=== PATIENT | female | born 1945 | race Asian ===

== ENCOUNTER 2016-10-06 06:14 | Day surgery (SDC) | payer OTHER ==
[~2016-10-06] VITALS: Ht 154.9 cm; Wt 41.5 kg
[~2016-10-06 06:14] MED LIST: ALBU8.5H IH; ALEN35TA32 PO; ALPR0.255 PO; AMLO-512 PO; ATEN50TA PO; BUDE0.255 NEB; CALC-51 PO; CLON1 PO; DOCU250C91 PO; ESOM20CA31 PO; FAMO20 PO; FLUT16H NASAL; HYDR10 PO; IPRA3AMP4 IH; LACT1TAB11 PO; LEVO75TA4 PO; METO5TAB95 PO; MONT10TA21 PO; MULT-1192 PO; TOLT2CAP27 PO; ZOLP5 PO
[2016-10-06] MEDS ORDERED: SODIUM CHLORIDE 0.9% 1,000 ML IV ONE ×2 (06:25→06:30)
[2016-10-06] MEDS ORDERED: SIMV-260 PO (06:58)
[2016-10-06] MEDS ORDERED: CHOL200012 PO (06:58)
[2016-10-06] MEDS ORDERED: LEVO500 PO (06:58)
[2016-10-06] MEDS ORDERED: TERB2.5T2 PO (06:58)
[2016-10-06] MEDS ORDERED: FentaNYL CITRATE-PF 100 MCG/2 ML VIAL ONE (08:06)
[2016-10-06] MEDS ORDERED: MIDAZOLAM HCL 2 MG/2 ML VIAL ONE (08:06)
[2016-10-06] MEDS ORDERED: MethylPREDNISolone SOD SUCC 125 MG/2 ML VIAL ONE (08:58)
[2016-10-06] MEDS ORDERED: ALBUTEROL SULFATE 2.5 MG/0.5 ML NEB SOLUTION NEB ONE (12:00)
[2016-10-06] MEDS ORDERED: LIDOCAINE HCL 2% 30 ML JELLY TP ONE (12:00)
[2016-10-06] MEDS ORDERED: LIDOCAINE HCL 4% 50 ML SOLUTION TP ONE (12:00)
[2016-10-06] MEDS ORDERED: BENZOCAINE 20% 50 MCG/SPRAY 57 GM TP ONE (12:00)
[2016-10-06] MEDS ORDERED: OXYGEN THERAPY IH SCH (20:00)
== END 2016-10-06 10:20 | disposition home or self-care (01) ==
LOC: SURGERY 06:14
PROVIDERS: ATTEND Internal Medicine Critical Care Medicine
DX: J38.4 Edema of larynx (principal); B37.0 Candidal stomatitis; E78.00 Pure hypercholesterolemia, unspecified; E04.9 Nontoxic goiter, unspecified; M54.9 Dorsalgia, unspecified; Z88.8 Allergy status to other drugs, medicaments and biological substances; Z86.73 Personal history of transient ischemic attack (TIA), and cerebral infarction without residual deficits
CPT/HCPCS: 31623; 31624; 71010; 87015 ×2; 87070; 87077; 87101; 87186; 87205; 87220; J2250; J2930; J3010; J7030; 88108; 88312

== ENCOUNTER 2017-04-11 05:49 | Day surgery (SDC) | payer OTHER ==
[~2017-04-11] VITALS: Ht 154.9 cm; Wt 47.7 kg
[~2017-04-11 05:49] MED LIST changes: -ALBU8.5H IH; +ALBU8.5H8 IH; -ALEN35TA32 PO; -ALPR0.255 PO; -ATEN50TA PO; +CALC-1038 PO; -CALC-51 PO; +CHOL200012 PO; -DOCU250C91 PO; -FAMO20 PO; -HYDR10 PO; +LEVO500 PO; -METO5TAB95 PO; -MONT10TA21 PO; +SIMV-260 PO; +TERB2.5T2 PO; -TOLT2CAP27 PO
[2017-04-11] MEDS ORDERED: ALBUTEROL SULFATE 2.5 MG/0.5 ML NEB SOLUTION NEB ONE (05:50)
[2017-04-11] MEDS ORDERED: LIDOCAINE HCL 2% 30 ML JELLY TP ONE (05:50)
[2017-04-11] MEDS ORDERED: BENZOCAINE 20% 50 MCG/SPRAY 57 GM TP ONE (05:50)
[2017-04-11] MEDS ORDERED: LIDOCAINE HCL 4% 50 ML SOLUTION TP ONE (05:50)
[2017-04-11] MEDS ORDERED: SODIUM CHLORIDE 0.9% 1,000 ML IV ONE ×2 (05:58→06:00)
[2017-04-11] MEDS ORDERED: MIDAZOLAM HCL 2 MG/2 ML VIAL ONE (07:55)
[2017-04-11] MEDS ORDERED: FentaNYL CITRATE-PF 100 MCG/2 ML VIAL ONE (07:56)
[2017-04-11] MEDS ORDERED: OXYGEN THERAPY IH SCH (20:00)
== END 2017-04-11 10:20 | disposition home or self-care (01) ==
LOC: SURGERY 05:49
PROVIDERS: ATTEND Internal Medicine Critical Care Medicine
DX: J38.4 Edema of larynx (principal); B37.0 Candidal stomatitis; Z88.8 Allergy status to other drugs, medicaments and biological substances; Z98.890 Other specified postprocedural states
CPT/HCPCS: 31623; 31624; 71010; 87015 ×2; 87070; 87101; 87147; 87205; 87220; 88108; 88312; J2250; J3010; J7030

== ENCOUNTER 2018-01-07 06:17 | Day surgery (SDC) | payer OTHER ==
[~2018-01-07] VITALS: Ht 157.5 cm; Wt 63.7 kg
[~2018-01-07 06:17] MED LIST changes: +SODIUM CHLORIDE 0.9% 1,000 ML IV ONE
[2018-01-07] MEDS ORDERED: BENZOCAINE 20% 50 MCG/SPRAY 57 GM TP ONE (06:18)
[2018-01-07] MEDS ORDERED: LIDOCAINE HCL 2% 30 ML JELLY TP ONE (06:18)
[2018-01-07] MEDS ORDERED: LIDOCAINE HCL 4% 50 ML SOLUTION TP ONE (06:18)
[2018-01-07] MEDS ORDERED: ALBUTEROL SULFATE 2.5 MG/0.5 ML NEB SOLUTION NEB ONE (06:18)
[2018-01-07] MEDS ORDERED: SODIUM CHLORIDE 0.9% 1,000 ML IV ONE (07:00)
[2018-01-07] MEDS ORDERED: MIDAZOLAM HCL 2 MG/2 ML VIAL ONE (07:51)
[2018-01-07] MEDS ORDERED: FentaNYL CITRATE-PF 100 MCG/2 ML VIAL ONE (07:52)
[2018-01-07] MEDS ORDERED: MethylPREDNISolone SOD SUCC 40 MG/ML VIAL IVP ONE (09:15)
[2018-01-07] MEDS ORDERED: MethylPREDNISolone SOD SUCC 40 MG/ML VIAL ONE (10:10)
[2018-01-07] MEDS ORDERED: OXYGEN THERAPY IH SCH (20:00)
== END 2018-01-07 11:15 | disposition home or self-care (01) ==
LOC: SURGERY 06:17
PROVIDERS: ATTEND Internal Medicine Critical Care Medicine
DX: J38.4 Edema of larynx (principal); B37.0 Candidal stomatitis; J84.111 Idiopathic interstitial pneumonia, not otherwise specified; I10 Essential (primary) hypertension; E78.00 Pure hypercholesterolemia, unspecified; Z88.5 Allergy status to narcotic agent; Z93.0 Tracheostomy status; Z88.6 Allergy status to analgesic agent; Z86.73 Personal history of transient ischemic attack (TIA), and cerebral infarction without residual deficits; Z79.2 Long term (current) use of antibiotics; Z88.8 Allergy status to other drugs, medicaments and biological substances; Z98.890 Other specified postprocedural states; Z79.899 Other long term (current) drug therapy
CPT/HCPCS: 31623; 31624; 71045; 87015; 87070; 87205; 87206; 87220; J2250; J2920; J3010; J7030

== ENCOUNTER 2018-07-05 05:17 | Day surgery (SDC) | payer OTHER ==
[~2018-07-05] VITALS: Ht 152.4 cm; Wt 68.5 kg
[~2018-07-05 05:17] MED LIST changes: +IPRA3AMP24 IH; -IPRA3AMP4 IH; -SODIUM CHLORIDE 0.9% 1,000 ML IV ONE
[2018-07-05] MEDS ORDERED: LIDOCAINE 2% 30 ML JELLY TP ONE (05:18)
[2018-07-05] MEDS ORDERED: LIDOCAINE 4% 50 ML SOLUTION TP ONE (05:18)
[2018-07-05] MEDS ORDERED: BENZOCAINE 20% 50 MCG/SPRAY 57 GM TP ONE (05:18)
[2018-07-05] MEDS ORDERED: SODIUM CHLORIDE 0.9% 1,000 ML IV ONE ×2 (05:21→07:00)
[2018-07-05] MEDS ORDERED: MIDAZOLAM HCL 2 MG/2 ML VIAL ONE (07:55)
[2018-07-05] MEDS ORDERED: FentaNYL CITRATE-PF 100 MCG/2 ML VIAL ONE (07:56)
[2018-07-05] MEDS ORDERED: OXYGEN THERAPY IH SCH (20:00)
== END 2018-07-05 10:35 | disposition home or self-care (01) ==
LOC: SURGERY 05:17
PROVIDERS: ATTEND Internal Medicine Critical Care Medicine
DX: J38.4 Edema of larynx (principal); B37.0 Candidal stomatitis; J45.909 Unspecified asthma, uncomplicated; Z93.0 Tracheostomy status; I10 Essential (primary) hypertension; Z88.6 Allergy status to analgesic agent; Z88.8 Allergy status to other drugs, medicaments and biological substances; Z98.890 Other specified postprocedural states
CPT/HCPCS: 31623; 31624; 71045; 87015; 87070; 87205; 87206; 87220; 88108; 88312; 93005; J2250; J3010; J7030

== ENCOUNTER 2021-03-16 06:45 | Day surgery (SDC) | payer OTHER ==
[2021-03-15 14:09] LABS: COVID AG,FIA SOURCE NASOPHARYNGEAL
[~2021-03-16] VITALS: Ht 157.5 cm; Wt 64.5 kg
[~2021-03-16 06:45] MED LIST changes: +AMLO-258 PO; -AMLO-512 PO; +CLON-595 PO; -CLON1 PO; -LACT1TAB11 PO; +LACT1TAB14 PO; +LEVO-72 PO; -LEVO500 PO; +SODIUM CHLORIDE 0.9% 1,000 ML IV ONE; +SODIUM CHLORIDE 0.9% 1,000 ML ONE; +ZOLP-280 PO; -ZOLP5 PO
[2021-03-16] MEDS ORDERED: ALBUTEROL SULFATE 2.5 MG/0.5 ML NEB SOLUTION NEB ONE (06:46)
[2021-03-16] MEDS ORDERED: LIDOCAINE 2% 30 ML JELLY TP ONE (06:46)
[2021-03-16] MEDS ORDERED: BENZOCAINE 20% 50 MCG/SPRAY 57 GM TP ONE (06:46)
[2021-03-16 07:53] LABS: GLUCOMETER DEV NAME(LOC) SDS.; GLUCOSE,POINT OF CARE 117 MG/DL (70-110)
[2021-03-16] MEDS ORDERED: FentaNYL CITRATE PF 100 MCG/2 ML VIAL ONE (07:54)
[2021-03-16] MEDS ORDERED: MIDAZOLAM HCL 5 MG/ML VIAL ONE (07:54)
[2021-03-16] MEDS ORDERED: OXYGEN THERAPY IH SCH (20:00)
== END 2021-03-16 11:30 | disposition home or self-care (01) ==
LOC: SURGERY 06:45
PROVIDERS: ATTEND Internal Medicine Critical Care Medicine
DX: J38.4 Edema of larynx (principal); B37.0 Candidal stomatitis; Z88.8 Allergy status to other drugs, medicaments and biological substances; Z88.6 Allergy status to analgesic agent; Z98.890 Other specified postprocedural states; E78.00 Pure hypercholesterolemia, unspecified
CPT/HCPCS: 31623; 31624; 71045; 82962; 87015; 87070; 87101; 87205; 87206; 87220; 87426; 88108; 88184; 88185; 88312; 93005; C9803; J2250; J3010; J7030; J7613

== ENCOUNTER 2021-06-13 06:24 | Day surgery (SDC) | payer OTHER ==
[~2021-06-13 06:24] MED LIST changes: +BUDE0.2517 NEB; -BUDE0.255 NEB; -SODIUM CHLORIDE 0.9% 1,000 ML IV ONE
[2021-06-13] MEDS ORDERED: BENZOCAINE 20% 50 MCG/SPRAY 57 GM TP ONE (06:25)
[2021-06-13] MEDS ORDERED: ALBUTEROL SULFATE 2.5 MG/0.5 ML NEB SOLUTION NEB ONE (06:25)
[2021-06-13] MEDS ORDERED: LIDOCAINE 2% 30 ML JELLY TP ONE (06:25)
[2021-06-13] MEDS ORDERED: SODIUM CHLORIDE 0.9% 1,000 ML IV ONE (06:30)
[2021-06-13 07:12] LABS: COVID AG,FIA SOURCE NASOPHARYNGEAL
[2021-06-13] MEDS ORDERED: FentaNYL CITRATE PF 100 MCG/2 ML VIAL ONE (07:32)
[2021-06-13] MEDS ORDERED: MIDAZOLAM HCL 5 MG/ML VIAL ONE (07:32)
[2021-06-13 07:36] LABS: GLUCOMETER DEV NAME(LOC) SDS.; GLUCOSE,POINT OF CARE 123 MG/DL (70-110)
[2021-06-13] MEDS ORDERED: MethylPREDNISolone SOD SUCC 125 MG/2 ML VIAL ONE (09:58)
[2021-06-13] MEDS ORDERED: MethylPREDNISolone SOD SUCC 125 MG/2 ML VIAL IVP ONE (10:45)
[2021-06-13] MEDS ORDERED: OXYGEN THERAPY IH SCH (20:00)
== END 2021-06-13 11:20 | disposition home or self-care (01) ==
LOC: SURGERY 06:24
PROVIDERS: ATTEND Internal Medicine Critical Care Medicine
DX: J38.4 Edema of larynx (principal); B37.0 Candidal stomatitis; L92.8 Other granulomatous disorders of the skin and subcutaneous tissue; Z98.890 Other specified postprocedural states; Z88.6 Allergy status to analgesic agent; Z88.8 Allergy status to other drugs, medicaments and biological substances; I10 Essential (primary) hypertension; E78.00 Pure hypercholesterolemia, unspecified; Z79.899 Other long term (current) drug therapy
CPT/HCPCS: 31623; 31624; 71045; 82962; 87015; 87070; 87101; 87205; 87206; 87220; 87426; 88108; 88184; 88185; 88312; C9803; J2250; J2930; J3010; J7030; J7613

== ENCOUNTER 2021-09-16 06:44 | Day surgery (SDC) | payer OTHER ==
[2021-09-13 16:32] LABS: COVID AG,FIA SOURCE NASOPHARYNGEAL
[~2021-09-16] VITALS: Ht 149.9 cm; Wt 63.6 kg
[~2021-09-16 06:44] MED LIST changes: +SODIUM CHLORIDE 0.9% 1,000 ML IV ONE
[2021-09-16] MEDS ORDERED: ALBUTEROL SULFATE 2.5 MG/0.5 ML NEB SOLUTION NEB ONE (06:45)
[2021-09-16] MEDS ORDERED: BENZOCAINE 20% 50 MCG/SPRAY 57 GM TP ONE (06:45)
[2021-09-16] MEDS ORDERED: LIDOCAINE 2% 30 ML JELLY TP ONE (06:45)
[2021-09-16] MEDS ORDERED: LIDOCAINE 2% 5 ML JELLY TP ONE ×2 (06:45)
[2021-09-16] MEDS ORDERED: LIDOCAINE 4% 50 ML SOLUTION TP ONE (06:45)
[2021-09-16] MEDS ORDERED: FLUMAZENIL 0.1 MG/ML 5 ML VIAL IVP ONE (07:20)
[2021-09-16] MEDS ORDERED: NALOXONE HCL 0.4 MG/ML VIAL ONE (07:20)
[2021-09-16] MEDS ORDERED: SODIUM TETRADECYL SULFATE 3% 60 MG/2 ML VIAL IVP ONE (07:20)
[2021-09-16] MEDS ORDERED: EPINEPHrine 1:10,000 [1 MG/10 ML] SYRINGE ONE (07:20)
[2021-09-16] MEDS ORDERED: DiphenhydrAMINE HCL 50 MG/ML VIAL ONE (07:20)
[2021-09-16] MEDS ORDERED: ATROPINE SULFATE 0.1 MG/ML 10 ML SYRINGE IVP ONE (07:21)
[2021-09-16] MEDS ORDERED: MIDAZOLAM HCL 5 MG/ML VIAL ONE (07:22)
[2021-09-16] MEDS ORDERED: FentaNYL CITRATE PF 100 MCG/2 ML VIAL ONE (07:22)
[2021-09-16] MEDS ORDERED: MethylPREDNISolone SOD SUCC 125 MG/2 ML VIAL ONE (09:42)
[2021-09-16] MEDS ORDERED: MethylPREDNISolone SOD SUCC 125 MG/2 ML VIAL IVP ONE (09:45)
== END 2021-09-16 10:40 | disposition home or self-care (01) ==
LOC: SURGERY 06:44
PROVIDERS: ATTEND Internal Medicine Critical Care Medicine
DX: J38.4 Edema of larynx (principal); B37.0 Candidal stomatitis; L92.8 Other granulomatous disorders of the skin and subcutaneous tissue; I10 Essential (primary) hypertension; J39.8 Other specified diseases of upper respiratory tract; Z79.899 Other long term (current) drug therapy; J45.909 Unspecified asthma, uncomplicated; Z87.01 Personal history of pneumonia (recurrent); Z86.73 Personal history of transient ischemic attack (TIA), and cerebral infarction without residual deficits; Z98.890 Other specified postprocedural states
CPT/HCPCS: 31623; 31624; 71045; 87015; 87070; 87101; 87206; 87220; 87426; 88184; 88185; C9803; J2250; J2930; J3010; J7030; 88112; 88312; J0171; J0461; J1200; J2310; J3490; Q9967; J7613; Z7610

== ENCOUNTER 2022-02-08 06:06 | Day surgery (SDC) | payer OTHER ==
[~2022-02-08] VITALS: Ht 149.9 cm; Wt 63.6 kg
[~2022-02-08 06:06] MED LIST changes: +ALEN70TA65 PO; +BACL10TA PO; -BUDE0.2517 NEB; +BUDE10.2 IH; -CALC-1038 PO; +CALC-26 PO; +CELE-84 PO; +CHLO4TAB28 PO; -CHOL200012 PO; +CHOL25TA4 PO; +DEUT6TAB PO; -ESOM20CA31 PO; +HYDR10TA31 PO; +ISOS10TA16 PO; -LEVO-72 PO; +LORA10TA7 PO; +MECL-160 PO; +METF-1211 PO; +MONT-40 PO; +OMEG-189 PO; +OMEP40CA21 PO; +QUET50TA24 PO; -SODIUM CHLORIDE 0.9% 1,000 ML IV ONE; -SODIUM CHLORIDE 0.9% 1,000 ML ONE; -TERB2.5T2 PO; +TOLT2CAP21 PO
[2022-02-08] MEDS ORDERED: LIDOCAINE 4% 50 ML SOLUTION TP ONE (06:07)
[2022-02-08] MEDS ORDERED: LIDOCAINE 2% 11 ML JELLY TP ONE (06:07)
[2022-02-08] MEDS ORDERED: BENZOCAINE 20% 50 MCG/SPRAY 57 GM TP ONE (06:07)
[2022-02-08 06:44] LABS: COVID AG,FIA SOURCE NASOPHARYNGEAL
[2022-02-08] MEDS ORDERED: SODIUM CHLORIDE 0.9% 1,000 ML IV ONE (07:00)
[2022-02-08] MEDS ORDERED: MIDAZOLAM HCL 2 MG/2 ML VIAL ONE (07:05)
[2022-02-08] MEDS ORDERED: FentaNYL CITRATE PF 100 MCG/2 ML VIAL ONE (07:05)
[2022-02-08] MEDS ORDERED: OXYGEN THERAPY IH SCH (08:00)
[2022-02-08] MEDS ORDERED: MethylPREDNISolone SOD SUCC 125 MG/2 ML VIAL IVP ONE (08:00)
[2022-02-08] MEDS ORDERED: MethylPREDNISolone SOD SUCC 125 MG/2 ML VIAL ONE ×2 (08:40→08:50)
== END 2022-02-08 11:15 | disposition home or self-care (01) ==
LOC: SURGERY 06:06
PROVIDERS: ATTEND Internal Medicine Critical Care Medicine
DX: J38.4 Edema of larynx (principal); B37.0 Candidal stomatitis; E11.9 Type 2 diabetes mellitus without complications; I10 Essential (primary) hypertension; Z98.890 Other specified postprocedural states; Z87.01 Personal history of pneumonia (recurrent); Z79.899 Other long term (current) drug therapy; Z88.6 Allergy status to analgesic agent; Z86.73 Personal history of transient ischemic attack (TIA), and cerebral infarction without residual deficits; Z20.822 Contact with and (suspected) exposure to COVID-19
CPT/HCPCS: 31623; 88112; 87206; 87101; 87220; 87070; 87015; 88305; 88312; 31624; 71045; 87426; J3010; J2250; J2930; Q9967; C9803; Z7610

== ENCOUNTER 2022-05-10 06:40 | Day surgery (SDC) | payer OTHER ==
[~2022-05-10] VITALS: Ht 149.9 cm; Wt 68.2 kg
[~2022-05-10 06:40] MED LIST changes: +SODIUM CHLORIDE 0.9% 1,000 ML IV ONE
[2022-05-10] MEDS ORDERED: BENZOCAINE 20% 50 MCG/SPRAY 57 GM TP ONE (06:41)
[2022-05-10] MEDS ORDERED: ALBUTEROL SULFATE 2.5 MG/0.5 ML NEB SOLUTION NEB ONE ×2 (06:41→10:37)
[2022-05-10] MEDS ORDERED: LIDOCAINE 4% 50 ML SOLUTION TP ONE (06:41)
[2022-05-10] MEDS ORDERED: LIDOCAINE 2% 11 ML JELLY TP ONE (06:41)
[2022-05-10 06:55] LABS: COVID AG,FIA SOURCE NASAL SWAB
[2022-05-10] MEDS ORDERED: SODIUM CHLORIDE 0.9% 1,000 ML ONE (08:00)
[2022-05-10] MEDS ORDERED: FentaNYL CITRATE PF 100 MCG/2 ML VIAL ONE (08:06)
[2022-05-10] MEDS ORDERED: MIDAZOLAM HCL 5 MG/ML VIAL ONE (08:07)
[2022-05-10] MEDS ORDERED: MethylPREDNISolone SOD SUCC 125 MG/2 ML VIAL IVP ONE (09:15)
[2022-05-10] MEDS ORDERED: MethylPREDNISolone SOD SUCC 125 MG/2 ML VIAL ONE (09:17)
[2022-05-10] MEDS ORDERED: OXYGEN THERAPY IH SCH (20:00)
== END 2022-05-10 11:00 | disposition home or self-care (01) ==
LOC: SURGERY 06:40
PROVIDERS: ATTEND Internal Medicine Critical Care Medicine
DX: J38.4 Edema of larynx (principal); B37.0 Candidal stomatitis; L92.8 Other granulomatous disorders of the skin and subcutaneous tissue; Z20.822 Contact with and (suspected) exposure to COVID-19; Z87.01 Personal history of pneumonia (recurrent); Z88.6 Allergy status to analgesic agent; Z98.890 Other specified postprocedural states; Z79.899 Other long term (current) drug therapy
CPT/HCPCS: 31623; 88112; 87101; 87220; 87070; 88305; 31624; 94640; 71045; 87015; 87426; 87206; J3010; J2930; J2250; Q9967; J7030; C9803; J7613; Z7610

== ENCOUNTER 2023-07-27 06:48 | Day surgery (SDC) | payer OTHER ==
[~2023-07-27] VITALS: Ht 149.9 cm; Wt 65.0 kg
[~2023-07-27 06:48] MED LIST changes: +ALBU18HF12 IH; -ALBU8.5H8 IH; +CELE-125 PO; -CELE-84 PO; -FLUT16H NASAL; +FLUT16SP NASAL; -MECL-160 PO; +MECL-302 PO; -SODIUM CHLORIDE 0.9% 1,000 ML IV ONE
[2023-07-27] MEDS ORDERED: SODIUM CHLORIDE 0.9% 1,000 ML IV ONE (07:00)
[2023-07-27] MEDS ORDERED: SODIUM CHLORIDE 0.9% 1,000 ML ONE (07:05)
[2023-07-27 08:36] LABS: GLUCOMETER DEV NAME(LOC) SDS.; GLUCOSE,POINT OF CARE 101 MG/DL (70-110)
[2023-07-27] MEDS ORDERED: FentaNYL CITRATE PF 100 MCG/2 ML VIAL ONE (08:39)
[2023-07-27] MEDS ORDERED: MIDAZOLAM HCL 2 MG/2 ML VIAL ONE (08:39)
[2023-07-27 09:15] VITALS: PULSE 82; RESP 24; O2SAT 99
[2023-07-27] MEDS ORDERED: MethylPREDNISolone SOD SUCC 125 MG/2 ML VIAL IVP ONE ×2 (09:15→09:45)
== END 2023-07-27 11:55 | disposition home or self-care (01) ==
LOC: SURGERY 06:48
PROVIDERS: ATTEND Internal Medicine Critical Care Medicine
DX: J38.4 Edema of larynx (principal); B37.0 Candidal stomatitis; L92.9 Granulomatous disorder of the skin and subcutaneous tissue, unspecified; E11.9 Type 2 diabetes mellitus without complications; E78.00 Pure hypercholesterolemia, unspecified; Z79.899 Other long term (current) drug therapy; Z98.890 Other specified postprocedural states; I10 Essential (primary) hypertension; Z88.8 Allergy status to other drugs, medicaments and biological substances; Z88.6 Allergy status to analgesic agent
CPT/HCPCS: 31623; 82962; 87206; 87101; 87220; 87070; 87186; 31624; 71045; 87015; J3010; J2250; J2930; J7030

== ENCOUNTER 2023-11-02 07:12 | Day surgery (SDC) | payer OTHER ==
[~2023-11-02] VITALS: Ht 149.9 cm; Wt 65.0 kg
[~2023-11-02 07:12] MED LIST changes: +SODIUM CHLORIDE 0.9% 1,000 ML ONE
[2023-11-02] MEDS ORDERED: MIDAZOLAM HCL 2 MG/2 ML VIAL ONE (07:41)
[2023-11-02] MEDS ORDERED: FentaNYL CITRATE PF 100 MCG/2 ML VIAL ONE (07:42)
[2023-11-02] MEDS: SODIUM CHLORIDE 0.9% 1,000 ML IV ONE (08:13)
[2023-11-02 08:16] LABS: GLUCOMETER DEV NAME(LOC) SDS.; GLUCOSE,POINT OF CARE 117 MG/DL (70-110)
[2023-11-02 09:45] VITALS: PULSE 93; RESP 26; O2SAT 95
[2023-11-02] MEDS ORDERED: MethylPREDNISolone SOD SUCC 125 MG/2 ML VIAL ONE (10:16)
[2023-11-02] MEDS: MethylPREDNISolone SOD SUCC 125 MG/2 ML VIAL IVP ONE (10:18)
== END 2023-11-02 13:05 | disposition home or self-care (01) ==
LOC: SURGERY 07:12
PROVIDERS: ATTEND Internal Medicine Critical Care Medicine
DX: R05.3 Chronic cough (principal); J38.4 Edema of larynx; R06.2 Wheezing; R91.8 Other nonspecific abnormal finding of lung field; J98.4 Other disorders of lung; E11.9 Type 2 diabetes mellitus without complications; I10 Essential (primary) hypertension; R06.02 Shortness of breath; I70.0 Atherosclerosis of aorta; M47.814 Spondylosis without myelopathy or radiculopathy, thoracic region; M41.84 Other forms of scoliosis, thoracic region; M41.86 Other forms of scoliosis, lumbar region; Z93.0 Tracheostomy status; Z88.5 Allergy status to narcotic agent
CPT/HCPCS: 82962; 87206; 87101; 87220; 87070; 88108; 87186; 31623; 31624; 94640; 71045; 87015; J3010; J2250; J2930; J7030

== ENCOUNTER 2024-02-08 07:26 | Day surgery (SDC) | payer OTHER ==
[~2024-02-08] VITALS: Ht 149.9 cm; Wt 64.9 kg
[~2024-02-08 07:26] MED LIST changes: -OMEG-189 PO; +OMEG-237 PO; +SODIUM CHLORIDE 0.9% 0 ML ONE; +SODIUM CHLORIDE 0.9% 1,000 ML IV ONE; -SODIUM CHLORIDE 0.9% 1,000 ML ONE
[2024-02-08] MEDS ORDERED: FentaNYL CITRATE PF 100 MCG/2 ML VIAL ONE (08:00)
[2024-02-08] MEDS ORDERED: MIDAZOLAM HCL 2 MG/2 ML VIAL ONE (08:00)
[2024-02-08] MEDS ORDERED: SODIUM CHLORIDE 0.9% 1,000 ML ONE (08:31)
[2024-02-08] MEDS: SODIUM CHLORIDE 0.9% 1,000 ML IV ONE (08:42)
[2024-02-08 09:16] LABS: GLUCOMETER DEV NAME(LOC) SDS.; GLUCOSE,POINT OF CARE 132 MG/DL (70-110)
[2024-02-08 10:15] VITALS: PULSE 78; RESP 20; O2SAT 94
[2024-02-08] MEDS ORDERED: LIDOCAINE 4% 50 ML SOLUTION ONE (12:00)
[2024-02-08] MEDS ORDERED: LIDOCAINE 2% 11 ML JELLY ONE (12:00)
[2024-02-08] MEDS ORDERED: ALBUTEROL SULFATE 2.5 MG/0.5 ML NEB SOLUTION NEB ONE (12:00)
[2024-02-08] MEDS ORDERED: BENZOCAINE 20% 50 MCG/SPRAY 57 GM ONE (12:00)
== END 2024-02-08 12:50 | disposition home or self-care (01) ==
LOC: SURGERY 07:26
PROVIDERS: ATTEND Internal Medicine Critical Care Medicine
DX: R05.3 Chronic cough (principal); J38.4 Edema of larynx; B37.0 Candidal stomatitis; L92.9 Granulomatous disorder of the skin and subcutaneous tissue, unspecified; R06.2 Wheezing; R04.2 Hemoptysis; J98.09 Other diseases of bronchus, not elsewhere classified; J84.10 Pulmonary fibrosis, unspecified; J98.8 Other specified respiratory disorders; Z97.0 Presence of artificial eye; I10 Essential (primary) hypertension; E78.00 Pure hypercholesterolemia, unspecified; E11.9 Type 2 diabetes mellitus without complications; Z79.84 Long term (current) use of oral hypoglycemic drugs; Z79.899 Other long term (current) drug therapy
CPT/HCPCS: 31623; 82962; 87206; 87101; 87220; 87070; 88108; 87186; 31624; 94640; 71045; 87015; J3010; J2250; J7030; J7613; Z7610

== ENCOUNTER 2024-10-22 07:01 | Day surgery (SDC) | payer OTHER ==
[~2024-10-22] VITALS: Ht 149.9 cm; Wt 64.9 kg
[~2024-10-22 07:01] MED LIST changes: -SODIUM CHLORIDE 0.9% 0 ML ONE; -SODIUM CHLORIDE 0.9% 1,000 ML IV ONE; +SODIUM CHLORIDE 0.9% 1,000 ML ONE
[2024-10-22] MEDS ORDERED: LIDOCAINE 4% 50 ML SOLUTION TP ONE (07:02)
[2024-10-22] MEDS ORDERED: BENZOCAINE 20% 50 MCG/SPRAY 57 GM TP ONE (07:02)
[2024-10-22] MEDS ORDERED: LIDOCAINE 2% 11 ML JELLY TP ONE (07:02)
[2024-10-22] MEDS ORDERED: MIDAZOLAM HCL 2 MG/2 ML VIAL ONE (07:47)
[2024-10-22] MEDS ORDERED: FentaNYL CITRATE PF 100 MCG/2 ML VIAL ONE (07:47)
[2024-10-22] MEDS: SODIUM CHLORIDE 0.9% 1,000 ML IV ONE (08:17)
[2024-10-22 09:21] LABS: GLUCOMETER DEV NAME(LOC) SDS.; GLUCOSE,POINT OF CARE 127 MG/DL (70-110)
[2024-10-22 09:25] VITALS: PULSE 97; RESP 20; O2SAT 99
[2024-10-22] MEDS ORDERED: MethylPREDNISolone SOD SUCC 125 MG/2 ML VIAL ONE (10:07)
[2024-10-22] MEDS ORDERED: MethylPREDNISolone SOD SUCC 40 MG/ML VIAL ONE (10:33)
[2024-10-22] MEDS: MethylPREDNISolone SOD SUCC 40 MG/ML VIAL IVP ONE (10:33)
== END 2024-10-22 11:50 | disposition home or self-care (01) ==
LOC: SURGERY 07:01
PROVIDERS: ATTEND Internal Medicine Critical Care Medicine
DX: R05.3 Chronic cough (principal); R04.2 Hemoptysis; J38.4 Edema of larynx; I10 Essential (primary) hypertension; E11.9 Type 2 diabetes mellitus without complications; B37.0 Candidal stomatitis; Z79.899 Other long term (current) drug therapy; Z98.890 Other specified postprocedural states; L92.8 Other granulomatous disorders of the skin and subcutaneous tissue; Z88.6 Allergy status to analgesic agent; Z88.8 Allergy status to other drugs, medicaments and biological substances
CPT/HCPCS: 31623; 82962; 87206; 87101; 87220; 87070; 88108; 87186; 31624; 71045; 87015; J3010; J2250; J2919 ×2; J7030; Z7610

== ENCOUNTER 2025-01-19 06:34 | Day surgery (SDC) | payer OTHER ==
[~2025-01-19] VITALS: Ht 149.9 cm; Wt 68.2 kg
[~2025-01-19 06:34] MED LIST changes: -SODIUM CHLORIDE 0.9% 1,000 ML ONE
[2025-01-19] MEDS: SODIUM CHLORIDE 0.9% 1,000 ML IV ONE (07:24)
[2025-01-19] MEDS ORDERED: MIDAZOLAM HCL 2 MG/2 ML VIAL ONE (08:03)
[2025-01-19] MEDS ORDERED: FentaNYL CITRATE PF 100 MCG/2 ML VIAL ONE (08:03)
[2025-01-19 09:01] LABS: GLUCOMETER DEV NAME(LOC) SDS.; GLUCOSE,POINT OF CARE 119 MG/DL (70-110)
[2025-01-19 09:40] VITALS: PULSE 98; RESP 30; O2SAT 100
[2025-01-19] MEDS ORDERED: MethylPREDNISolone SOD SUCC 40 MG/ML VIAL ONE (10:29)
[2025-01-19] MEDS: MethylPREDNISolone SOD SUCC 40 MG/ML VIAL IVP ONE (10:30)
== END 2025-01-19 12:50 | disposition home or self-care (01) ==
LOC: SURGERY 06:34
PROVIDERS: ATTEND Internal Medicine Critical Care Medicine
DX: R05.3 Chronic cough (principal); J38.4 Edema of larynx; B37.0 Candidal stomatitis; L92.8 Other granulomatous disorders of the skin and subcutaneous tissue; I10 Essential (primary) hypertension; E78.00 Pure hypercholesterolemia, unspecified; G47.00 Insomnia, unspecified; E11.9 Type 2 diabetes mellitus without complications; Z88.6 Allergy status to analgesic agent; Z88.8 Allergy status to other drugs, medicaments and biological substances
CPT/HCPCS: 31623; 82962; 87206; 87101; 87220; 87070; 88108; 31624; 71045; 87015; J3010; J2250; J2919; 87186

== ENCOUNTER 2025-05-08 06:39 | Day surgery (SDC) | payer OTHER ==
[~2025-05-08] VITALS: Ht 149.9 cm; Wt 68.2 kg
[2025-05-08] MEDS ORDERED: SODIUM CHLORIDE 0.9% 1,000 ML ONE (06:43)
[2025-05-08] MEDS ORDERED: FentaNYL CITRATE PF 100 MCG/2 ML VIAL ONE (07:46)
[2025-05-08] MEDS ORDERED: MIDAZOLAM HCL 2 MG/2 ML VIAL ONE (07:47)
[2025-05-08] MEDS: SODIUM CHLORIDE 0.9% 1,000 ML IV ONE (08:39)
[2025-05-08 08:45] LABS: GLUCOMETER DEV NAME(LOC) SDS.; GLUCOSE,POINT OF CARE 108 MG/DL (70-110)
[2025-05-08 10:00] VITALS: PULSE 91; RESP 20; O2SAT 91
[2025-05-08] MEDS ORDERED: LIDOCAINE 2% 11 ML JELLY ONE (16:46)
[2025-05-08] MEDS ORDERED: BENZOCAINE 20% 50 MCG/SPRAY 57 GM ONE (16:46)
[2025-05-08] MEDS ORDERED: LIDOCAINE 4% 50 ML SOLUTION ONE (16:46)
[2025-05-08] MEDS ORDERED: ALBUTEROL SULFATE 2.5 MG/0.5 ML NEB SOLUTION NEB ONE (16:46)
== END 2025-05-08 15:30 | disposition left against medical advice (07) ==
LOC: SDS 06:39
PROVIDERS: ATTEND Internal Medicine Critical Care Medicine
DX: R05.3 Chronic cough (principal); R06.2 Wheezing; R49.0 Dysphonia; I10 Essential (primary) hypertension; E11.9 Type 2 diabetes mellitus without complications; Z98.890 Other specified postprocedural states
CPT/HCPCS: 31623; 82962; 87206; 87101; 87220; 87070; 88108; 87186; 31624; 71045; 87015; J3010; J2250; J7030; J7613; Z7610